=== PATIENT | male | born 1940 | race Caucasian/White ===

== ENCOUNTER 2022-04-06 06:26 | Day surgery (SDC) | payer MEDICARE, SELFPAY ==
--- NOTE | 2022-04-02 10:13 | HO.ANESPROP2 ---
Documented by User: Candida Aponte NP 04/02/22 10:14 HPI - Anesthesia Eval Consult details Narrative: 81yo M for Colonoscopy [facility] Past Medical History Medical History Gout History of Helicobacter pylori infection Peptic ulcer Prostate cancer Surgical History Surgical History H/O colonoscopy Hx of prostatectomy Social History Social History (Updated 04/01/22 @ 09:32 by Karma Peralta RN) Patient Tobacco Use Status: Never used Tobacco Use of substances other than those prescribed or required for medical reasons: No Are you DNR?: No Advance Directives: No Advance Directives Information Provided: Yes Meds Allergies Allergy/AdvReac Type Severity Reaction Status Date / Time colchicine [COLCHICINE] Allergy Intermediate RASH Verified 04/06/22 07:02 lisinopril [LISINOPRIL] Allergy Mild LIP Verified 04/06/22 07:02 SWELLING Home Medications Medication Instructions Recorded Confirmed Last Taken Type abiraterone 250 mg tablet 4 tab PO DAILY 04/06/22 04/06/22 Unknown History prednisone 5 mg tablet 1 tab PO DAILY 04/06/22 04/06/22 Unknown History Exam Exam Date and Time: April 02, 2022 1013 Height,Weight and Vital Signs: Height 6 ft Assessment and Plan Assessment Anesthesia Assessment: Chart Reviewed Documented by User: Poppy Moreno MD 04/06/22 07:24 [facility] Past Medical History Medical History Gout History of Helicobacter pylori infection Peptic ulcer Prostate cancer Functional capacity: independent ambulation Family History Family history of problems with anesthesia: No Surgical History Surgical History H/O colonoscopy Hx of prostatectomy History of Problems with Anesthesia: No Social History Social History (Updated 04/01/22 @ 09:32 by Karma Peralta RN) Patient Tobacco Use Status: Never used Tobacco Use of substances other than those prescribed or required for medical reasons: No Are you DNR?: No Advance Directives: No Advance Directives Information Provided: Yes Meds Allergies Allergy/AdvReac Type Severity Reaction Status Date / Time colchicine [COLCHICINE] Allergy Intermediate RASH Verified 04/06/22 07:02 lisinopril [LISINOPRIL] Allergy Mild LIP Verified 04/06/22 07:02 SWELLING Home Medications Medication Instructions Recorded Confirmed Last Taken Type abiraterone 250 mg tablet 4 tab PO DAILY 04/06/22 04/06/22 Unknown History prednisone 5 mg tablet 1 tab PO DAILY 04/06/22 04/06/22 Unknown History Exam Airway Mallampati Class: II TM Dist: >3cm Neck ROM: Full Heart: RRR Lungs: CTA Assessment and Plan Final Anesthetic Review Family History of Problems with Anesthesia: No History of Problems with Anesthesia: No ASA Class: II Final Preanesthetic Review: No Changes in Pt Med Stat, Meds/Allgs Chart Reviewed and Consent Obtained/Reviewed Patient Risk: Low Procedure Risk: Low Anesthetic Plan Anesthetic Plan: MAC: Disposition: Standard PACU
[2022-04-06 06:40] VITALS: BMI 29.8
[2022-04-06 06:54] VITALS: BP 151/71; PULSE 58; RESP 16; TEMP 36.3; O2SAT 99
[2022-04-06] MEDS: Lactated Ringers 1,000 ML 100 ML IVCONT (07:04)
--- NOTE | 2022-04-06 07:33 | MHC.SHP ---
Pre-Procedural Eval Section A Date of Service: 04/06/22 Section B Chief Complaint: screening Details of Present Illness: see H&P no changes Relevant Family History (Specify if Yes): No Relevant Social History: None Present Medications: see Short Stay Collaborative assessment Medical History: No relevant PMH Allergies: Allergies Allergy/AdvReac Type Severity Reaction Status Date / Time colchicine [COLCHICINE] Allergy Intermediate RASH Verified 04/06/22 07:02 lisinopril [LISINOPRIL] Allergy Mild LIP Verified 04/06/22 07:02 SWELLING Review of Systems Sugical H&P ROS: Negative: Constitution, Cardiovascular, Respiratory, Neurological, Psychiatric, Hem-Onc, Allergic/Immunologic, Gastrointestinal, Genitourinary, Musculoskeletal, Integumentary, Endocrine and Eyes/Ears/Nose/Throat Exam Surgical H&P Exam: Normal: HEENT, Normal: Heart, Normal: Lungs, Normal: Extremities, Normal: Abdomen, Normal: Skin and Normal: Neurological Plan I have reviewed the history and physical and performed a pertinent physical examination on my patient. No changes have occurred unless specified.
--- NOTE | 2022-04-06 08:04 | PM.OP ---
Brief Operative Note Date of Service: 04/06/22 Pre-op diagnosis: screening Post-op diagnosis: same Procedure: colonoscopy Surgeon: Tavon Godwin Anesthesia: MAC Was an Police Detention Attendant used for this Procedure?: No Estimated blood loss (mL): 0 Pathology: other Condition: stable Disposition: PACU
[2022-04-06 08:05] VITALS: BP 109/70; PULSE 62; RESP 20; TEMP 36.8; O2SAT 97
[2022-04-06 08:20] VITALS: BP 137/84; PULSE 61; RESP 18; TEMP 36.8; O2SAT 98
--- NOTE | 2022-04-06 09:12 | OP_ITS ---
SURGEON: Tavon Godwin MD INDICATIONS: Colon cancer screening and prior history of adenomatous colon polyps. PREOPERATIVE DIAGNOSIS: POSTOPERATIVE DIAGNOSIS: PROCEDURE PERFORMED: Colonoscopy to the terminal ileum with snare polypectomy. ESTIMATED BLOOD LOSS: COMPLICATIONS: ANESTHESIA: ASSISTANTS: SPECIMENS: MEDICATIONS: Monitored anesthesia care. DESCRIPTION OF PROCEDURE: The procedure was performed on 04/06/2022. History and physical was performed. The risks and benefits of the procedure were explained to the patient. Informed consent was obtained. The patient was placed in a left lateral decubitus position. A digital rectal exam was performed and was found to be normal. The Olympus pediatric video colonoscope was introduced into the rectum and advanced to the cecum without difficulty. The cecum was identified by transillumination, palpation, and identification of ileocecal valve. Examination was performed. The scope was removed. He tolerated the procedure well and was taken to Recovery in stable condition. FINDINGS: The terminal ileum was examined and appeared normal. Visualized colonic mucosa was normal. The quality of prep was good. Two polyps were identified and removed with a snare. Both measured less than 10 mm. These were located at 80 cm and 50 cm. No other polyps were identified. Moderate sigmoid diverticulosis was noted. Retroflexed examination showed moderate-sized internal hemorrhoids. There were scattered diverticula throughout the remainder of the colon. IMPRESSION: Colon polyps. RECOMMENDATION: Follow up the biopsy results. MD ZEV [place]/YVETTE / [id number]
--- NOTE | 2022-04-06 10:10 | HO.POSTANES ---
Post Anesthesia Evaluation Post Anesthesia Evaluation Vital Signs: Vital Signs Temp Pulse Resp BP Pulse Ox O2 Del Method O2 Flow Rate 04/06/22 08:20 98.2 F 61 18 137/84 98 Room Air 04/06/22 08:05 98.2 F 62 20 109/70 97 Nasal Cannula 2 04/06/22 06:54 97.3 F 58 16 151/71 H 99 Room Air Anesthesia: Monitored Mental Status: Awake Pain Control: Satisfactory Nausea/Vomiting: None Hydration: Adequate Anesthesia-Related Issues: No Anes. Related Issues
== END 2022-04-06 08:37 | disposition home or self-care (01) ==
PROVIDERS: PCP Family Medicine; Visit Provider Internal Medicine Gastroenterology
PROC: 0DJD8ZZ Inspection of Lower Intestinal Tract, Via Natural or Artificial Opening Endoscopic (ICD-10-PCS; CPT 45378; principal; 2022-04-06 07:30)
DX: Z12.11 Encounter for screening for malignant neoplasm of colon (principal); Z86.010 Personal history of colon polyps; D12.4 Benign neoplasm of descending colon; D12.5 Benign neoplasm of sigmoid colon; K57.30 Diverticulosis of large intestine without perforation or abscess without bleeding; K64.8 Other hemorrhoids; M10.9 Gout, unspecified; Z85.46 Personal history of malignant neoplasm of prostate; Z86.19 Personal history of other infectious and parasitic diseases; Z87.11 Personal history of peptic ulcer disease; Z79.1 Long term (current) use of non-steroidal anti-inflammatories (NSAID); Z79.52 Long term (current) use of systemic steroids; Z88.8 Allergy status to other drugs, medicaments and biological substances
CPT/HCPCS: 45385; 88305